=== PATIENT | male | born 1970 | race Caucasian/White ===

== ENCOUNTER 2017-01-05 14:43 | Emergency (ER) | payer OTHER ==
[2017-01-05 15:15] VITALS: BP 151/101
--- NOTE | 2017-01-05 17:17 | UC ---
[facility] HPI - HPI Summary HPI Summary: Patient arrives to ED with CC of pain over right upper canine radiating to the jaw and ear with swelling over right maxillary sinus. Denies trismus, drooling or dysphagia. Pain is 8/10, sharp and throbbing. Denies airway compromise or SOB. Denies ear pain, eye pain, blurry vision or double vision. Otherwise healthy. Pain is worse with chewing and cold drinks, better with ibuprofen, but only improves slightly. Patient has had history of dental infections and several extractions. He endorses long history of fatigue to which he takes testosterone supplements and also HTN medications, but denies other medication use. - History of Current Complaint Hx Obtained From: Patient Onset/Duration: Sudden Onset Severity: Moderate Pain Intensity: 3 Pain Scale Used: Adult Non Verbal Aggravating: Cold, Chewing Alleviating: Other (see comments) - clove Related History: Swelling <Nelia Hill - Last Filed: 01/05/17 17:13> <Tess Nielsen - Last Filed: 01/05/17 17:30> - History of Current Complaint Chief Complaint: UCDentalProblem Stated Complaint: FACE CHEEK PAIN Time Seen by Provider: 01/05/17 15:37 - Allergies/Home Medications Allergies/Adverse Reactions: Allergies Allergy/AdvReac Type Severity Reaction Status Date / Time No Known Allergies Allergy Verified 01/05/17 15:15 Home Medications: Home Medications Blood Pressure Medication 1 tab PO DAILY 01/05/17 [History Confirmed 01/05/17] Tylenol 1,500 mg PO PRN 01/05/17 [History] PMH/Surg Hx/FS Hx/Imm Hx Previously Healthy: Yes Endocrine History Of: Denies: Diabetes, Thyroid Disease Cardiovascular History Of: Reports: Hypertension Denies: Cardiac Disorders Respiratory History Of: Denies: COPD, Asthma GI/ History Of: Denies: Ulcer - Surgical History Surgical History: Yes Surgery Procedure, Year, and Place: gallbladder - Social History Occupation: Employed Full-time Lives: With Family Alcohol Use: Rare Substance Use Type: None Smoking Status (MU): Never Smoked Tobacco Type: Smokeless Tobacco Amount Used/How Often: 1 can every 4-5 days <Nelia Hill - Last Filed: 01/05/17 17:13> Review of Systems Constitutional: Negative Skin: Negative Eyes: Negative ENT: Dental Pain, Other - swelling Respiratory: Negative Cardiovascular: Negative Neurovascular: Negative Musculoskeletal: Negative Neurological: Negative All Other Systems Reviewed And Are Negative: Yes <Sergio,Nelia Martínez - Last Filed: 01/05/17 17:13> Physical Exam Triage Information Reviewed: Yes Appearance: Well-Appearing, No Pain Distress, Well-Nourished Vital Signs: Initial Vital Signs Temp 98.3 F 01/05/17 15:10 Pulse 73 01/05/17 15:10 Resp 18 01/05/17 15:10 BP 151/101 01/05/17 15:10 Pulse Ox 97 01/05/17 15:10 Vital Signs Reviewed: Yes Eye Exam: Normal Eyes: Positive: Conjunctiva Clear Dental: Positive: Percussion Tenderness @ - right sided maxillary sinus, Gross Decay/Caries @ - throughout, Dental Fracture @ - throughout, with multiple extractions, Abscess @ - right upper canine Respiratory: Positive: Chest non-tender, Lungs clear, Normal breath sounds Cardiovascular Exam: Normal Cardiovascular: Positive: RRR Psychological Exam: Normal Psychological: Positive: Normal Response To Family, Age Appropriate Behavior Skin Exam: Normal <Sergio,Nelia Martínez - Last Filed: 01/05/17 17:13> Vital Signs: Initial Vital Signs Temp 98.3 F 01/05/17 15:10 Pulse 73 01/05/17 15:10 Resp 18 01/05/17 15:10 BP 151/101 01/05/17 15:10 Pulse Ox 97 01/05/17 15:10 <Tess Nielsen - Last Filed: 01/05/17 17:30> Dental Complaint Course/Dx - Course Course Of Treatment: No dental abscess or lesions seen over area of concern. Erythema at site of pain. No drainage from area. Several dental caries, cavities, crowding and broken teeth throughout. Pain on palpation over mandible and maxillary sinus extending inferior to the orbit with no orbit involvement or obvious signs of orbital cellulitis. No TMJ tenderness. No pain with opening and closing mouth. No trismus. Poor dental hygiene and outpatient dental care. Will treat for possible dental infection/abscess based on symptoms of pain and radiation to jaw and ear with moderate amount of swelling over right maxillary sinus. Patient has had this swelling for less than 2 days and with no trismus, will not obtain CT scan at this time. No allergies. Will treat with Penicillin. Patient to follow up immediately with dentist. - Differential Dx/Diagnosis Differential Diagnosis/Dx: Dental Abscess, Dental Caries, Fractured Tooth, Odontogenic Pain Provider Diagnoses: Dental Abscess <Nelia Hill - Last Filed: 01/05/17 17:13> Discharge <Nelia Hill - Last Filed: 01/05/17 17:13> <Tess Nielsen - Last Filed: 01/05/17 17:30> - Discharge Plan Condition: Stable Disposition: HOME Prescriptions: Penicillin VK TAB 500 MG(NF) [Penicillin VK 500 mg Tab(NF)] 500 mg PO QID #28 tab Patient Education Materials: Dental Abscess (ED) Referrals: Guilherme ROSS,Jered Waters [Primary Care Provider] - Additional Instructions: You have been diagnosed with dental pain with possible infection: Antibiotics as prescribed to you. 500mg Penicillin four times daily for 7 days. Salt water rinses several times per day will improve healing time. Ibuprofen 600mg three times daily with meals for discomfort. May use cloves over the area for comfort. Follow up with a dentist for routine care to prevent recurrence of infections. If fever, worsening pain or swelling develops, see your PCP, dentist or come back to the Emergency Department. Images Dental: 1 - erythema with swelling. <Nelia Hill - Last Filed: 01/05/17 17:13> Attestation Statement User Type: Provider - I was available for consult. This patient was seen by the RUBEN. The patient was not presented to, seen by, or examined by me. - Helen <Tess Nielsen - Last Filed: 01/05/17 17:30>
== END 2017-01-05 16:35 | disposition home or self-care (01) ==
LOC: UCEAST 14:43
DX: K04.7 Periapical abscess without sinus (principal); I10 Essential (primary) hypertension
CPT/HCPCS: 99202; G0463